=== PATIENT | female | born 1975 | race Two or more races ===

== ENCOUNTER 2018-08-23 20:26 | Emergency (ER) | END 2018-08-24 01:17 | disposition home or self-care (01) ==

== ENCOUNTER 2018-12-25 06:58 | Emergency (ER) | payer OTHER ==
[~2018-12-25] VITALS: Ht 160 cm; Wt 62.0 kg
[~2018-12-25 06:58] MED LIST: IBUP-1542 PO; SUMA25TA34 PO
[2018-12-25 07:02] VITALS: BP 151/83; PULSE 95; RESP 18; Ht 160 cm; Wt 62.0 kg
[2018-12-25] MEDS ORDERED: FAMOTIDINE 20 MG TAB PO ONE (07:30)
[2018-12-25] MEDS ORDERED: DEXAMETHASONE 10 MG/ML 1 ML INJ IM ONE (07:30)
[2018-12-25] MEDS ORDERED: NYST1000 PO (07:41)
[2018-12-25] MEDS ORDERED: BEN25 PO (07:41)
[2018-12-25] MEDS ORDERED: MED4DP PO (07:41)
[2018-12-25] MEDS ORDERED: CARB15SO5 MM (07:41)
[2018-12-25] MEDS ORDERED: HC30CR25 TOP (07:41)
--- NOTE | 2018-12-25 08:24 | ERD ---
ER Documentation Chief Complaint Chief Complaint pt bib self with c/o scratchy throat , after possibly taking some meds, HPI 43-year-old female presenting with a scratchy throat and irritation after taking medication at home. Patient took baclofen and medication for her migraine. She took some Benadryl last night that alleviated her symptoms however she still feels that there is some scratching irritation to her throat. She is worried about allergic reaction. She also has some sores under her tongue which are irritating and have been there for the last few weeks. Denies any fevers. Denies medical problems. NKDA. Surgical history denies. Social history denies ROS All systems reviewed and are negative except as per history of present illness. Medications Home Meds Active Scripts Hydrocortisone* Topical (Hydrocortisone* Topical) 2.5%-28.3 Gm Cream..g., 1 APPLIC TOP BID, #1 TUB Prov:DEEPTI SOTELO PA-C 12/25/18 Nystatin (Nystatin) 100,000 Unit/1 Ml Oral.susp, 2 ML PO QID for 7 Days, OZ Swish and swallow Prov:DEEPTI SOTELO PA-C 12/25/18 Carbamide Peroxide (Gly-Oxide) 15 Ml Solution, 15 ML MM BID, #1 Prov:DEEPTI SOTELO PA-C 12/25/18 Methylprednisolone* (Medrol* DOSE PACK) 4 Mg/Dose-Pack Tab.ds.pk, 4 MG PO . DIRECTED, #1 PACKET Prov:DEEPTI SOTELO PA-C 12/25/18 Diphenhydramine Hcl* (Benadryl*) 25 Mg Cap, 25 MG PO Q6, #30 CAP Prov:DEEPTI SOTELO PA-C 12/25/18 Ibuprofen* (Motrin*) 600 Mg Tab, 600 MG PO Q6H PRN for PAIN AND/OR INFLAMMATION, #30 TAB Prov:SOPHIE DIOR MD 08/24/18 Reported Medications Sumatriptan Succinate* (Imitrex*) Unknown Strength Tablet, 1 TAB PO NEEDED PRN for MIGRAINE HEADACHE, TAB May repeat after 2 hours if needed; MAX 200 mg/24 hours 08/23/18 Ibuprofen* (Ibuprofen*) 600 Mg Tablet, 600 MG PO Q6H PRN for NEEDED, TAB 08/23/18 Allergies Allergies: Coded Allergies: No Known Allergy (Unverified , 08/23/18) PMhx/Soc Medical and Surgical Hx: pt denies Medical Hx, pt denies Surgical Hx History of Surgery: No Anesthesia Reaction: No Hx Neurological Disorder: No Hx Respiratory Disorders: No Hx Cardiac Disorders: No Hx Psychiatric Problems: No Hx Miscellaneous Medical Probl: No Hx Alcohol Use: No Hx Substance Use: No Hx Tobacco Use: No Smoking Status: Never smoker FmHx Family History: No diabetes, No coronary disease, No other Physical Exam Vitals Vital Signs Date Temp Pulse Resp B/P (MAP) Pulse Ox O2 O2 Flow FiO2 Time Delivery Rate 12/25/18 97.6 95 18 151/83 100 07:02 (105) Physical Exam GENERAL: The patient is well-appearing, well-nourished, in no acute distress HEENT: Atraumatic. Conjunctivae are pink. Pupils equal, round, and reactive to light. There is no scleral icterus. Tympanic membranes clear bilaterally. Oropharynx clear. No nystagmus or photophobia. Small open sores noted under the tongue adjacent to the frenulum. NECK: C-spine is soft and supple. There is no meningismus. There is no cervical lymphadenopathy. CHEST: Clear to auscultation bilaterally. There are no rales, wheezes or rho nchi. HEART: Regular rate and rhythm. No murmurs, clicks, rubs or gallops. SKIN: Erythematous site noted to the right arm with small nodule with no fluctuance or purulence. No lymphatic streaking. No vesicles Results 24 hrs Current Medications Medications Dose Sig/Fina Start Time Status Last (Trade) Ordered Route PRN Stop Time Admin Dose Reason Admin 10 mg ONCE ONCE 12/25/18 DC 12/25/18 Dexamethasone IM 07:30 07:47 (Decadron) 12/25/18 07:31 Famotidine 20 mg ONCE ONCE 12/25/18 DC 12/25/18 (Pepcid) PO 07:30 07:47 12/25/18 07:31 Procedures/MDM MDM: 43-year-old female presenting with throat irritation. I have low suspicion for bacterial infection. Patient may have a component of thrush however there is no white exudates noted. I will treat given the patient has had symptoms for the last 2 weeks with no resolution however I have high suspicion that this is likely viral. I have low suspicion for anaphylaxis or angioedema. Patient's exam is non-concerning. Patient is discharged with strict ER precautions and told to follow-up with primary care within 1-2 days for close evaluation. All questions answered at discharge Departure Diagnosis: Primary Impression: Allergic reaction Condition: Stable Patient Instructions: Allergic Reaction, Drug Referrals: [facility] YOU HAVE RECEIVED A MEDICAL SCREENING EXAM AND THE RESULTS INDICATE THAT YOU DO NOT HAVE A CONDITION THAT REQUIRES URGENT TREATMENT IN THE EMERGENCY DEPARTMENT. FURTHER EVALUATION AND TREATMENT OF YOUR CONDITION CAN WAIT UNTIL YOU ARE SEEN IN YOUR DOCTORS OFFICE WITHIN THE NEXT 1-2 DAYS. IT IS YOUR RESPONSIBILITY TO MAKE AN APPOINTMENT FOR FOLOW-UP CARE. IF YOU HAVE A PRIMARY DOCTOR --you should call your primary doctor and schedule an appointment IF YOU DO NOT HAVE A PRIMARY DOCTOR YOU CAN CALL OUR PHYSICIAN REFERRAL HOTLINE AT IF YOU CAN NOT AFFORD TO SEE A PHYSICIAN YOU CAN CHOSE FROM THE FOLLOWING [facility] [address] [facility] [id number] [facility] [address] [facility] [address] [facility] [address] [facility] [facility]. [address] Additional Instructions: FOLLOW UP WITH YOUR PRIMARY CARE PHYSICIAN TOMORROW.Return to this facility if you are not improving as expected. DEEPTI SOTELO PA-C Dec 25, 2018 08:24
== END 2018-12-25 08:14 | disposition home or self-care (01) ==
LOC: FTE 06:58
DX: R09.89 Other specified symptoms and signs involving the circulatory and respiratory systems (principal)
CPT/HCPCS: 96372; 99284; J1100